=== PATIENT | female | born 1985 | race American Indian/Alaskan Native ===

== ENCOUNTER 2023-04-27 09:04 | Inpatient (IN) | payer OTHER ==
[2023-04-27] MEDS ORDERED: miSOPROStoL 200 MCG TABLET BC PRN (09:23)
[2023-04-27] MEDS ORDERED: OXYTOCIN 10 UNIT/ML VIAL IM PRN (09:23)
[2023-04-27] MEDS ORDERED: METHYLERGONOVINE 0.2 MG/ML VIAL IM PRN (09:23)
[2023-04-27] MEDS ORDERED: miSOPROStoL 200 MCG TABLET PR PRN (09:23)
[2023-04-27] MEDS ORDERED: fentaNYL 100 MCG/2 ML VIAL IVP PRN (09:23)
[2023-04-27] MEDS ORDERED: LACTATED RINGERS 1,000 ML IV PRN (09:23)
[2023-04-27] MEDS ORDERED: lidocaine 1% 20 ML MDV ID PRN (09:23)
[2023-04-27] MEDS ORDERED: TRANEXAMIC ACID IN NACL 1,000 MG/100 ML BAG IV PRN (09:23)
[2023-04-27] MEDS ORDERED: CARBOPROST TROMETHAMINE 250 MCG/ML AMP IM PRN (09:23)
[2023-04-27] MEDS ORDERED: OXYTOCIN/SODIUM CHLORIDE 500 ML IV PRN (09:23)
[2023-04-27] MEDS ORDERED: SODIUM CHLORIDE FLUSH 0.9% 10 ML SYRINGE IVP PRN (09:23)
--- NOTE | 2023-04-27 09:32 | HISTORY & PHYSICAL EXAMINATION ---
Admit History - Visit Reason Visit Reason: Contractions - : 6 Parity: 4 Care: positive: Other ([facility]) Complications This : positive: Other (AMA Hx DVT second , treated with Lovenox all since then Ulcerative colitis Gallbladder stones Elevated GTT 162) - Mother's Labs GBS: positive: Group B Step Negative (per patient) - Other Maternal History Other Maternal History: Med: Ulcerative colitis DVT in second Surg: colonoscopy Fam: stroke, htn, DM, heart disease Social: , denies mary - HPI Diagnosis/Indication for NST: labor (rule out labor 38w) - NST Procedure EFM: 140s, moderate variability, positive 15x15 accelerations, no decelerations [place]: contractions q4 NST reactive Admitted for labor Review of Systems - All Other Systems All Other Systems: reports: Reviewed and negative Physical - Abdominal Exam Contraction Frequency (min/apart): 4 Contraction Intensity: positive: Moderate Uterine Resting Tone: positive: Soft - Monitoring Heart Rate Baseline: 140 Strip Review: positive: Category I - Presentation Presentation: positive: Vertex (placenta anterior, EFW 3800g) - Vaginal Exam Membranes: positive: Membranes intact Dilation (in cm): 5 Effacement (%): 50 Station: positive: -3 Cervical Position: positive: Midposition Plan for Labor - Plan For Labor I expect patient to be DC'd or transferred within 96 hours.: Yes Plan for Labor: 37yo at 38w by LMP confirmed by 8w US admitted in labor - T&S, CBC - records from reviewed - May have epidural - Anticipate
[2023-04-27] MEDS ORDERED: ROPIVACAINE 0.2% 200 MG/100 ML BAG EP ONE ×2 (09:51→16:28)
[2023-04-27] MEDS ORDERED: SODIUM CHLORIDE FLUSH 0.9% 10 ML SYRINGE IVP SCH (10:00)
[2023-04-27] MEDS ORDERED: ROPIVACAINE 0.2% 200 MG/100 ML BAG EP PRN (10:27)
[2023-04-27] MEDS ORDERED: ePHEDrine 50 MG/ML VIAL IVP PRN (10:27)
[2023-04-27] MEDS ORDERED: NALOXONE 0.4 MG/ML VIAL IVP PRN (10:27)
[2023-04-27] MEDS ORDERED: METOCLOPRAMIDE 10 MG/2 ML VIAL IVP PRN (10:27)
[2023-04-27] MEDS ORDERED: NALBUPHINE 10 MG/ML AMP IVP PRN (10:27)
[2023-04-27] MEDS ORDERED: ONDANSETRON 4 MG/2 ML VIAL IVP PRN (10:27)
[2023-04-27] MEDS ORDERED: diphenhydrAMINE INJ 50 MG/ML VIAL IVP PRN (10:27)
--- NOTE | 2023-04-27 10:31 | ANESTHESIA ---
Pre-Anesthesia VS, & Labs - Diagnosis active labor - Procedure labor epidural Vital Signs: Temp Pulse Resp BP Pulse Ox O2 Flow Rate 36.6 C 96 17 111/66 100 04/27/23 09:40 04/27/23 09:40 04/27/23 09:40 04/27/23 09:40 04/27/23 09:40 Height: 5 ft 3 in Weight (kg): 72.121 kg Body Mass Index: 28.1 BMI Classification: Overweight - NPO >8 hours - Is Patient ?: No Home Medications and Allergies Active Medications Carboprost Tromethamine (Carboprost Tromethamine 250 Mcg/Ml Amp) 250 mcg IM .ONCE PRN PRN Reason: Hemorrhage Diphenhydramine HCl (Diphenhydramine Inj 50 Mg/Ml Vial) 12.5 - 25 mg IVP Q6HR PRN PRN Reason: ITCHING Ephedrine Sulfate (Ephedrine 50 Mg/Ml Vial) 5 mg IVP Q5M PRN PRN Reason: For SBP<100;give until SBP>100 Fentanyl (Fentanyl 100 Mcg/2 Ml Vial) 50 mcg IVP Q1H PRN PRN Reason: Severe Pain (score 7-10) Lactated Ringer's (Lr) 500 mls @ 999 mls/hr IV PRN PRN PRN Reason: PER PHYSICIAN ORDER Oxytocin/Sodium Chloride (Pitocin/Sodium Chloride) 500 mls @ 999 mls/hr IV PRN PRN; Protocol PRN Reason: POST- HEMORR PREVENTION Tranexamic Acid (Tranexamic 1,000 Mg/100ml-Nacl) 1,000 mg in 100 mls @ 600 mls/hr IV Q30M PRN PRN Reason: EBL >1200mL and within 3hr Ropivacaine (Naropin 0.2%) 200 mg in 100 mls @ 0 mls/hr EP PRN PRN; Protocol PRN Reason: PAIN Lidocaine HCl (Lidocaine 1% 20 Ml Mdv) 20 ml ID .ONCE PRN PRN Reason: PERINEAL REPAIR Stop: 04/30/23 09:23 Methylergonovine Maleate (Methylergonovine 0.2 Mg/Ml Vial) 0.2 mg IM .ONCE PRN PRN Reason: Hemorrhage Metoclopramide HCl (Metoclopramide 10 Mg/2 Ml Vial) 10 mg IVP Q6HR PRN PRN Reason: Nausea / Vomiting Misoprostol (Misoprostol 200 Mcg Tablet) 600 mcg BC .ONCE PRN PRN Reason: Hemorrhage Misoprostol (Misoprostol 200 Mcg Tablet) 800 mcg VT .ONCE PRN PRN Reason: Hemorrhage Nalbuphine HCl (Nalbuphine 10 Mg/Ml Amp) 2.5 - 5 mg IVP Q4H PRN PRN Reason: ITCHING Naloxone HCl (Naloxone 0.4 Mg/Ml Vial) 0.1 mg IVP Q2M PRN PRN Reason: RR<8 Ondansetron HCl (Ondansetron 4 Mg/2 Ml Vial) 4 mg IVP Q6HR PRN PRN Reason: Nausea / Vomiting Oxytocin (Oxytocin 10 Unit/Ml Vial) 10 unit IM .ONCE PRN PRN Reason: Step One if no IV access. Sodium Chloride (Sodium Chloride Flush 0.9% 10 Ml Syringe) 10 ml IVP PRN PRN PRN Reason: NEEDED PER PROVIDER ORDERS Sodium Chloride (Sodium Chloride Flush 0.9% 10 Ml Syringe) 10 ml IVP Q8H LIN Anes History & Medical History - Anesthetic History Anesthesia Complications: reports: Slow wake-up (from propofol after endoscopy) - Medical History Cardiovascular: reports: None Pulmonary: reports: None Blood Disorders: reports: None (histpru of DTV post , last lovenox friday per patient) Smoking Status: Never smoker Psychosocial: reports: No issues indicated History of Cancer?: No - Obstetrical History : 6 Parity: 4 Complications: reports: Other (AMA Hx DVT second , treated with Lovenox all since then Ulcerative colitis Gallbladder stones Elevated GTT 162) Exam General: Alert, Oriented x3 Dental: WNL Mouth Opening: Greater than 4 Fingerbreadths Neck Mobility: Normal Mallampati classification: II Thyromental Distance: less than 4 cm Respiratory: Lungs clear Cardiovascular: Regular rate Plan Anesthesia Type: Epidural Consent for Procedure(s) Verified and Reviewed: Yes Code Status: Attempt Resuscitation ASA classification: 2-Mild systemic disease Is this case an emergency?: No
[2023-04-27 10:43] LABS: BASOPHILS # (AUTO) 0.1 10^3/uL (0.0-0.1); BASOPHILS % (AUTO) 0.4 %; EOSINOPHILS # (AUTO) 0.2 10^3/uL (0.0-0.7); EOSINOPHILS % (AUTO) 1.3 %; HCT - HEMATOCRIT 34.4 % (37.0-47.0); HGB - HEMOGLOBIN 11.2 g/dL (12.0-16.0); LYMPHOCYTES # (AUTO) 2.5 10^3/uL (1.5-3.5); LYMPHOCYTES % (AUTO) 21.3 %; MEAN CORPUSCULAR HEMOGLOBIN 29.3 pg (27.0-31.0); MEAN CORPUSCULAR HGB CONC 32.6 g/dL (32.0-36.0); MEAN CORPUSCULAR VOLUME 90.1 fL (81.0-99.0); MEAN PLATELET VOLUME 9.9 fL (7.9-10.8); MONOCYTES # (AUTO) 0.8 10^3/uL (0.0-1.0); MONOCYTES % (AUTO) 7.2 %; NEUTROPHILS # (AUTO) 7.9 10^3/uL (1.5-6.6); NEUTROPHILS % (AUTO) 68.6 %; PLT - PLATELET COUNT 186 10^3/uL (130-450); RED BLOOD COUNT 3.82 10^6/uL (4.20-5.40); RED CELL DISTRIBUTION WIDTH 13.9 % (12.0-15.0); WHITE BLOOD COUNT 11.6 x10^3/uL (4.8-10.8)
[2023-04-27] MEDS ORDERED: OXYTOCIN/SODIUM CHLORIDE 500 ML IV SCH (12:00)
[2023-04-27] MEDS ORDERED: LORazepam 2 MG/ML VIAL IVP PRN (13:02)
[2023-04-27] MEDS ORDERED: LORazepam 2 MG/ML VIAL IVP SCH (13:15)
--- NOTE | 2023-04-27 15:52 | PROVIDER PROGRESS NOTE ---
Labor Progress Note - Uterine Monitoring Uterine Monitoring Mode: positive: External toco Contraction Frequency (min/apart): 4 Contraction Intensity: positive: Mild to moderate - Monitoring Monitor Mode: positive: External ultrasound Heart Rate Baseline: 130 Heart Rate Variability: positive: Moderate (6-25 bmp) Accelerations: positive: Present, 15x15 Decelerations: positive: None Strip Review: positive: Category I - Vaginal Exam Dilation (in cm): 6 Effacement (%): 100 Station: -2 Cervical Position: Midposition (AROM clear 1230) - Labor Progress Note Labor Progress Note/Additional Text: 37yo at 38w admitted in labor - After epidural patient began to have involuntary vs voluntary dyskinetic move ments. Bed rail padding applied to stretcher due to arm, body and head rapid movements. Patient coherent and answering questions during movements. Encouraged slower deeper breathing. Sustained rapid movements. Denies drug use history or siezure or other neurology history. reports similar episodes nightly that improve with sleep. Discussed lorazepam as patient at risk for injuring herself and abdomen, she accepts. Anesthesia to bedside to assess epidural. Soon after lorazepam patient able to rest and sleep. Continue to monitor. Consider psychiatric and/or neurology referral . - AROM 1230, clear. Pitocin also started to expedite delivery due to patient movements and discomfort.
[2023-04-27] MEDS ORDERED: WITCH HAZEL/GLYCERIN 1 PAD TOP PRN (20:10)
[2023-04-27] MEDS ORDERED: HYDROCORTISONE 1% CREAM 28 GM TUBE PR PRN (20:10)
--- NOTE | 2023-04-27 20:16 | DELIVERY NOTE ---
Delivery Note - Labor Labor: positive: Spontaneous, Augmented by ARM, Augmented by oxytocin - Delivery Method Infant Delivery Method: positive: Spontaneous vaginal delivery - Presentation Presentation: positive: Vertex, JENI - left occiput anterior - Nuchal Cord Nuchal Cord: positive: None - Amniotic Fluid Description Amniotic Fluid Description: positive: Clear - Episiotomy Type Episiotomy Type: positive: None - Laceration Laceration: positive: None - Delivery Outcome Delivery Outcome: positive: Livebirth - : positive: Placed in direct skin contact with mother, Stimulated, Warmed, [place] used sex: positive: Female - Cord Cord: positive: 3 vessels - Placenta Placenta: positive: Intact, Spontaneous - Estimated Blood Loss Estimated Blood Loss (in cc): 150 - Post Delivery Events Post Delivery Events: positive: No post delivery events - Delivery Comments (Free Text/Narrative) Delivery Comments (Free Text/Narrative): This 37yo at 38.2wks gestation is a patient of the auction assistant physician. I was called to the patient's room at 1940 secondary to patient feeling significant vaginal and rectal pressure with urge to push. She was found to be completely dilated and effaced and +1 station. : She progressed to spontaneously deliver a viable female on 04/27/2023 @ 1943. No nuchal cord. The was placed on maternal abdomen, stimulated, dried, and placed skin to skin. Apgars were 9/9 at 1 and 5 minutes respectively. Pitocin administered via IV for hemostasis. The umbilical cord was allowed to stop pulsating at which time it was doubly clamped by CNM and cut by FOB. 3VC. Cord blood was obtained. Fundal massage and gentle cord traction applied for active management of the third stage. Placenta delivered spontane ously and intact at 1946. EBL 150mL. Fourth stage: Uterine fundus firm and there is no excessive bleeding. The perineum, vagina, and cervix were inspected and found to be intact. Family bonding well. Skin to skin contact initiated. Both mother and baby were left in stable condition. Care handed back to auction assistant physician.
[2023-04-27] MEDS ORDERED: LACTATED RINGERS 1,000 ML IV SCH (21:00)
[2023-04-27] MEDS ORDERED: IBUPROFEN 800 MG TABLET PO SCH (21:00)
[2023-04-27] MEDS: ACETAMINOPHEN 500 MG TABLET PO SCH (21:20)
[2023-04-27] MEDS: DOCUSATE SODIUM 100 MG CAPSULE PO SCH (21:58)
[2023-04-27] MEDS: HYDROcod/ACETAM 5/325 MG TABLET PO PRN (21:58)
[2023-04-28] MEDS: HYDROcod/ACETAM 5/325 MG TABLET PO PRN ×5 (02:33→21:08)
[2023-04-28 05:24] LABS: BASOPHILS # (AUTO) 0.1 10^3/uL (0.0-0.1); BASOPHILS % (AUTO) 0.3 %; EOSINOPHILS # (AUTO) 0.2 10^3/uL (0.0-0.7); HCT - HEMATOCRIT 34.3 % (37.0-47.0); HGB - HEMOGLOBIN 11.3 g/dL (12.0-16.0); LYMPHOCYTES # (AUTO) 4.2 10^3/uL (1.5-3.5); LYMPHOCYTES % (AUTO) 21.4 %; MEAN CORPUSCULAR HEMOGLOBIN 29.7 pg (27.0-31.0); MEAN CORPUSCULAR HGB CONC 32.9 g/dL (32.0-36.0); MEAN PLATELET VOLUME 9.8 fL (7.9-10.8); MONOCYTES # (AUTO) 1.9 10^3/uL (0.0-1.0); MONOCYTES % (AUTO) 9.7 %; NEUTROPHILS # (AUTO) 13.1 10^3/uL (1.5-6.6); NEUTROPHILS % (AUTO) 66.7 %; PLT - PLATELET COUNT 189 10^3/uL (130-450); RED BLOOD COUNT 3.81 10^6/uL (4.20-5.40); RED CELL DISTRIBUTION WIDTH 14.2 % (12.0-15.0); WHITE BLOOD COUNT 19.7 x10^3/uL (4.8-10.8)
[2023-04-28] MEDS: ACETAMINOPHEN 500 MG TABLET PO SCH (05:48)
[2023-04-28] MEDS: ENOXAPARIN 40 MG/0.4 ML SYRINGE SUBQ SCH (05:49)
[2023-04-28] MEDS: DOCUSATE SODIUM 100 MG CAPSULE PO SCH ×2 (09:22→21:08)
--- NOTE | 2023-04-28 17:18 | PROVIDER PROGRESS NOTE ---
Subjective - Subjective Subjective: Subjective Patient reports she is doing well. Lochia appropriate. Denies heavy bleeding. Ambulating. Pelvic and abdominal pain well-controlled. Tolerating oral intake. Diet: Regular. Voiding without difficulty. Passing flatus. Denies BM. Patient is bonding with baby in room Breast feeding slow, but making a lot of colostrum. Seems to be getting slightly better. Denies feeling lightheaded, dizzy or excessively fatigued. Objective General: Alert, oriented, no apparent distress. Cardiovascular: Regular rate. Regular rhythm. Lungs: No increased work of breathing. Abdomen: Uterus firm. Below umbilicus. No guarding or rebound. Extremities: No pain on palpation. No cords palpated. Distal pulses intact. Assessment and Plan day 1. -Routine care -Anticipate discharge tomorrow Objective - Vital Signs/Intake & Output Vital Signs: Vital Signs x48h Temp Pulse Resp BP BP Pulse Ox 04/28/23 13:16 97.9 F 78 16 103/62 100 04/28/23 10:00 97.5 F L 78 16 109/66 100 Intake & Output: Intake & Output 04/25/23 04/26/23 04/27/23 04/28/23 23:59 23:59 23:59 23:59 Intake Total 2387 750 Output Total 1425 1150 Balance 962 -400 - Lab Results Fish Bones: 04/28/23 05:13 Other Labs: Lab Results x24hrs 04/28/23 Range/Units 05:13 WBC 19.7 H (4.8-10.8) x10^3/uL RBC 3.81 L (4.20-5.40) 10^6/uL Hgb 11.3 L (12.0-16.0) g/dL Hct 34.3 L (37.0-47.0) % MCV 90.0 (81.0-99.0) fL MCH 29.7 (27.0-31.0) pg MCHC 32.9 (32.0-36.0) g/dL RDW 14.2 (12.0-15.0) % Plt Count 189 (130-450) 10^3/uL MPV 9.8 (7.9-10.8) fL Neut # (Auto) 13.1 H (1.5-6.6) 10^3/uL Lymph # (Auto) 4.2 H (1.5-3.5) 10^3/uL [place] # (Auto) 1.9 H (0.0-1.0) 10^3/uL Eos # (Auto) 0.2 (0.0-0.7) 10^3/uL Baso # (Auto) 0.1 (0.0-0.1) 10^3/uL Absolute Nucleated RBC 0.00 x10^3/uL Nucleated RBC % 0.0 /100WBC
[2023-04-29] MEDS: HYDROcod/ACETAM 5/325 MG TABLET PO PRN ×2 (01:41→06:09)
[2023-04-29] MEDS: ENOXAPARIN 40 MG/0.4 ML SYRINGE SUBQ SCH (06:10)
[2023-04-29 06:24] LABS: BASOPHILS # (AUTO) 0.1 10^3/uL (0.0-0.1); BASOPHILS % (AUTO) 0.4 %; EOSINOPHILS # (AUTO) 0.4 10^3/uL (0.0-0.7); HCT - HEMATOCRIT 35.3 % (37.0-47.0); HGB - HEMOGLOBIN 11.3 g/dL (12.0-16.0); LYMPHOCYTES # (AUTO) 3.8 10^3/uL (1.5-3.5); LYMPHOCYTES % (AUTO) 29.6 %; MEAN CORPUSCULAR HEMOGLOBIN 29.5 pg (27.0-31.0); MEAN CORPUSCULAR VOLUME 92.2 fL (81.0-99.0); MEAN PLATELET VOLUME 9.9 fL (7.9-10.8); NEUTROPHILS # (AUTO) 7.5 10^3/uL (1.5-6.6); NEUTROPHILS % (AUTO) 58.3 %; PLT - PLATELET COUNT 198 10^3/uL (130-450); RED BLOOD COUNT 3.83 10^6/uL (4.20-5.40); RED CELL DISTRIBUTION WIDTH 14.2 % (12.0-15.0); WHITE BLOOD COUNT 12.8 x10^3/uL (4.8-10.8)
--- NOTE | 2023-04-29 07:35 | DISCHARGE SUMMARY ---
Discharge Summary Admit Date: 04/27/23 Discharge Date: 04/29/23 Discharging Provider: Howie Whittaker MD Condition at Discharge: Good Discharge Disposition: 01 Home, Self Care - DIAGNOSES Admission Diagnoses: 38 weeks gestation Early term labor Discharge Diagnoses with Status of Each Condition: 38 weeks gestation Early term labor Delivery of live green - HPI History of Present Illness: Subjective Patient reports she is doing well. Lochia appropriate. Denies heavy bleeding. Ambulating. Pelvic and abdominal pain well-controlled. Tolerating oral intake. Diet: Regular. Voiding without difficulty. Passing flatus. Denies BM. Patient is bonding with baby in room Breast feeding going well. Denies feeling lightheaded, dizzy or excessively fatigued. Objective General: Alert, oriented, no apparent distress. Cardiovascular: Regular rate. Regular rhythm. Lungs: No increased work of breathing. Abdomen: Uterus firm. Below umbilicus. No guarding or rebound. Extremities: No pain on palpation. No cords palpated. - HOSPITAL COURSE Hospital Course: Patient was admitted to labor and delivery at 38 weeks in spontaneous labor. She had AROM performed in active labor and progressed to complete without complication. She had an uneventful delivery of a live green female with APGARs of 9/9. course was unremarkable and she was discharged on day 2. - ALLERGIES Allergies/Adverse Reactions: Allergies Allergy/AdvReac Type Severity Reaction Status Date / Time amoxicillin Allergy Edema Verified 04/27/23 10:49 cephalexin [From Keflex] Allergy Edema Verified 04/27/23 10:49 propofol Allergy Unknown Verified 04/27/23 10:49 - LABS Result Diagrams: 04/29/23 06:18 - FOLLOW UP Follow Up: [facility] in 1-2 weeks - TIME SPENT Time Spent in Discharge (Minutes): 20
--- NOTE | 2023-04-29 07:37 | Discharge Plan ---
Discharge Plan Problem Reviewed?: Yes Disposition: Home, Self Care Condition: Good Diet: Regular Instruction Topics: Vaginal After, Depression Additional Instructions or Follow Up instructions: Ibuprofen 600mg by mouth every 6 hours and tylenol 1000mg by mouth every 6 hours as needed for pain. May keep for a couple days as scheduled to stay on top of pain. No Smoking: If you smoke, Please STOP! Call for help.
[2023-04-29] MEDS: DOCUSATE SODIUM 100 MG CAPSULE PO SCH (10:06)
[2023-04-29 10:16] VITALS: BP 106/61; O2SAT 100
--- NOTE | 2023-04-29 13:48 | Labor Flowsheet ---
Labor Flowsheet Datetime Report Generated by CPN: 04/29/2023 13:47 Datetime: 04/28/2023 17:11 VITAL SIGNS NBP Sys/[place]/Mean (mmHg): 111 : 59 : 72 Pulse: 78 Datetime: 04/27/2023 22:40 Stage of : Datetime: 04/27/2023 21:45 Pain Type: Cramping; Pressure Pain Location: Abdomen Pain Goal: 4 Pain Relief Measures: Comfort Measures Datetime: 04/27/2023 21:31 Respirations: 22 Datetime: 04/27/2023 21:01 PAIN Pain Scale: 5 Pain Presence: Constant Datetime: 04/27/2023 20:17 Temperature Route: Oral Datetime: 04/27/2023 19:47 Stage 2 Comments: 1947Placenta, pitocin bolus Datetime: 04/27/2023 19:44 Membranes Ruptured Date/Time: 04/27/2023 12:28 Amniotic Fluid Odor: Normal Datetime: 04/27/2023 19:43 Comments: female Pushing Position: Pushing with Contractions Pushing Progress: Descent with Pushing; Pushing Effectively with Contractions Datetime: 04/27/2023 19:42 STAGE 2 Pushing: Coached on Pushing; Urge to Push; Involuntary Pushing Preparation for Delivery: Setup for Delivery Datetime: 04/27/2023 19:40 Patient Position/Activity: Left Tilt I/O Interventions: [place] Discontinued Patient Care Comments: [place] removed; 500ml urine; cephalus starting to crown COMMUNICATION Communication: Provider at Bedside Communication Comments: CNM Chrissie at bedside; pt complete at +1 to +2 Datetime: 04/27/2023 19:38 VAGINAL EXAM Dilatation (cm): 9.5 Effacement (%): 100 Station: 1 Exam by: Spear RNC Datetime: 04/27/2023 19:35 LaborFlag: Labor Datetime: 04/27/2023 19:30 Monitor Interventions for UA: 1.5-3.5 Pain Coping: Writhing Pain Assessment Comments: Reporting pressure at symphysis Vaginal Bleeding: Normal Show Cervix, Consistency: Soft Cervix, Position: Anterior Vaginal Exam Comments: repositioned to LLP after SVE Comfort Measures: Breathing/Relaxation; Coaching; Family Support Provider Reviewed Strip: Yes ANESTHESIA Anesthesia Plans: Epidural Anesthesia Level Check: T8- Ribs TEACHING Instructional Method: Verbal; Patient Instructed; Family/Support Person Instructed; Verbalized Unde rstanding Plan of Care: Plan of Care Discussed; Vaginal Delivery Unit Routine: Unit Personnel Provider Notified (Name): CNM Chrissie Notification Reason: Status Update; Labor Status Datetime: 04/27/2023 19:29 Temperature (C): 36.5 UTERINE ACTIVITY Monitor Mode: External Frequency (min): 1.5-3.5 Quality: Strong Duration (sec): 40-110 Pattern: Normal: <= 5 Contractions in 10 Minutes Resting Tone (Palpate): Relaxed Contraction Comments: Pitociin remains off ASSESSMENT A Monitor Mode: Telemetry FHR Baseline Rate : 140 FHR Baseline Changes: No Baseline Change Variability: Moderate 6-25 bpm Accelerations: 15X15 Decelerations: None Category: Category I MATERNAL ASSESSMENT Level of Consciousness: Alert Headache: Denies Nausea/Vomiting: Hx of Nausea/Vomiting RUQ Epigastric Pain: Denies PATIENT CARE Oxygen Method: Room Air Datetime: 04/27/2023 18:01 Pitocin Checklist: At Least 1 Acceleration of 15 bpm x 15 Seconds in 30 Minutes or Adequate Variabi lity; No More than 1 Late Deceleration Occurred in Past 30 Minutes; No More than 2 Variable Decelerat ions > 60 Seconds in Duration and decreasing >60 bpm in 30 minutes; No More than 5 Uterine Contractio ns in 10 Minutes for any 20 Minute Interval; Uterus Palpates Soft between Contractions Datetime: 04/27/2023 17:15 MEDICATIONS Pitocin (milliunits): Increased to @ 14 Datetime: 04/27/2023 16:25 Anesthesia Comments: DEO bag changed d/t low volume of current bag Datetime: 04/27/2023 16:00 SpO2 (%): 99 Datetime: 04/27/2023 13:46 Medication Comments: O2 off Datetime: 04/27/2023 13:39 Vital Sign Comments: Difficulty reading PT BP d/t to Pt movement and inability to sit still Datetime: 04/27/2023 12:28 Membrane Status: Ruptured Membranes Rupture Method: Artificial Amniotic Fluid Color: Clear Amniotic Fluid Amount: Scant Membrane Comments: blood tinged Datetime: 04/27/2023 09:59 Epidural Procedure: Test Dose Datetime: 04/27/2023 09:55 PROCEDURE TIME OUT Procedure Verify: Correct Patient Identity; Correct Side and Site are Marked; Agreement on Procedur e to be Done; Correct Patient Position; Addressed Need to Administer Antibiotics or Fluids for Irriga tion; Safety Precautions Based on Patient History or Medication Use Epidural Positioning: Sitting
== END 2023-04-29 13:47 | disposition home or self-care (01) | DRG 807 ==
LOC: WFO 09:04 → FBP 09:06 → WFO 09:22 → FBP 09:23
PROVIDERS: ADMIT Obstetrics & Gynecology; ATTEND Obstetrics & Gynecology
PROC: 10E0XZZ Delivery of Products of Conception, External Approach (ICD-10-PCS; principal; 2023-04-27)
PROC: 10907ZC Drainage of Amniotic Fluid, Therapeutic from Products of Conception, Via Natural or Artificial Opening (ICD-10-PCS; 2023-04-27)
DX: O80 Encounter for full-term uncomplicated delivery (principal); Z37.0 Single live birth; Z3A.38 38 weeks gestation of pregnancy; Z86.718 Personal history of other venous thrombosis and embolism
CPT/HCPCS: 36415; 85025; 86850; 86900; 86901; A9270; J1650; J7120; 99214

== ENCOUNTER 2023-07-23 15:08 | Emergency (ER) | payer OTHER ==
[2023-07-23 15:27] VITALS: BP 111/65; O2SAT 98
[2023-07-23 15:38] LABS: RAPID STREP SCREEN Negative (Negative)
--- NOTE | 2023-07-23 15:43 | ED Physician Documentation ---
PD HPI PED ILLNESS - Stated complaint Stated Complaint: THROAT/CHEST PX,LEONARD, - Chief complaint Chief Complaint: Heent - History obtained from History obtained from: Patient - Additional information Additional information: 37-year-old woman with history of ulcerative colitis on mesalamine and Remicade presents with 5 days of sore throat not associated with runny nose or cough. She had a low-grade fever at home. She is worried about strep. PD PAST MEDICAL HISTORY - Past Medical History Past Medical History: Yes Cardiovascular: None Respiratory: None GI: Ulcerative colitis - Past Surgical History Past Surgical History: No - Present Medications Home Medications: Ambulatory Orders Medication Instructions Recorded Confirmed inFLIXimab [Remicade] 200 mg IV ONCE 07/23/23 07/23/23 - Allergies Allergies/Adverse Reactions: Allergies Allergy/AdvReac Type Severity Reaction Status Date / Time amoxicillin Allergy Edema Verified 04/27/23 10:49 cephalexin [From Keflex] Allergy Edema Verified 04/27/23 10:49 propofol Allergy Unknown Verified 04/27/23 10:49 - Social History Does the pt smoke?: No Smoking Status: Never smoker PD ED PE NORMAL - Vitals Vital signs reviewed: Yes - General General: Alert and oriented X 3, No acute distress - HEENT HEENT: PERRL, EOMI, Other (Mildly red tonsillar pillars without exudates, she does have significant anterior cervical adenopathy.) - Neck Neck: Supple, no meningeal sign - Cardiac Cardiac: RRR, No murmur - Respiratory Respiratory: No respiratory distress, Clear bilaterally - Abdomen Abdomen: Non tender - Derm Derm: No rash - Neuro Neuro: Alert and oriented X 3, Normal speech Results - Vitals Vitals: Vital Signs - 24 hr 07/23/23 15:11 Temperature 36.5 C Heart Rate 91 Respiratory 16 Rate Blood Pressure 111/65 O2 Saturation 98 - EKG (time done) 1532 EKG releavant findings:: EKG personally interpreted by author of this note. Relevant findings are: Rate: Rate (enter#) (85) Rhythm: NSR [place]: Normal Intervals: Normal [place] QRS: Normal Ischemia: Normal ST segments Computer interpretation: Agree with computer - Labs Labs: Laboratory Tests 07/23/23 15:22 Group A Strep Rapid Negative PD Medical Decision Making - ED course ED course: She presents for the evaluation of sore throat. She has some reactive chest pain with this. EKG is unremarkable. Examination on the right is normal/negative other than mildly red tonsillar pillars. Rapid strep was negative. Departure - Departure Disposition: 01 Home, Self Care Clinical Impression: Viral pharyngitis Condition: Good Record reviewed to determine appropriate education?: Yes Instructions: ED Pharyngitis Viral Report Pending Comments: Your rapid strep test was negative. You can take Tylenol and/or ibuprofen as needed for the pains. Return if worse. We will perform a throat culture and if a bacterial isolate is identified we will call you in the next few days.
== END 2023-07-23 15:58 | disposition home or self-care (01) ==
LOC: ED 15:08
DX: J02.8 Acute pharyngitis due to other specified organisms (principal)
CPT/HCPCS: 87070; 87430; 93005; 99283

== ENCOUNTER 2023-09-22 07:54 | Day surgery (SDC) | payer OTHER ==
[~2023-09-22 07:54] MED LIST: ACETAMINOPHEN 500 MG TABLET PO ONE; LACTATED RINGERS 1,000 ML IV ONE; ceFAZolin 2 GM VIAL ONE; metroNIDAZOLE 500 MG/100 ML 500 MG/100 ML BAG ONE
[2023-09-22 08:18] LABS: HCG UR QUAL NEGATIVE
[2023-09-22] MEDS ORDERED: ROCURONIUM 50 MG/5 ML VIAL ONE ×2 (08:38→09:46)
[2023-09-22] MEDS ORDERED: DEXAMETHASONE 4 MG/ML VIAL ONE (08:38)
[2023-09-22] MEDS ORDERED: diphenhydrAMINE INJ 50 MG/ML VIAL ONE (08:38)
[2023-09-22] MEDS ORDERED: ONDANSETRON 4 MG/2 ML VIAL ONE ×2 (08:38→11:19)
[2023-09-22] MEDS ORDERED: MIDAZOLAM 2 MG/2 ML VIAL ONE (08:38)
[2023-09-22] MEDS ORDERED: PROPOFOL 200 MG/20 ML VIAL IVP ONE (08:38)
[2023-09-22] MEDS ORDERED: fentaNYL 100 MCG/2 ML VIAL ONE ×3 (08:39→11:26)
[2023-09-22] MEDS ORDERED: BUPIVACAINE 0.5% PF 10 ML VIAL ONE (08:46)
[2023-09-22] MEDS ORDERED: LIDOCAINE 1%-EPI 1:100000 20 ML MDV ONE (08:46)
[2023-09-22] MEDS ORDERED: iohexoL-240 10 ML VIAL IVP ONE ×3 (08:48→09:58)
[2023-09-22] MEDS ORDERED: LIDOCAINE 1%-EPI 1:100000 20 ML MDV SUBQ ONE (09:28)
[2023-09-22] MEDS ORDERED: BUPIVACAINE 0.5% PF 10 ML VIAL SUBQ ONE (09:29)
--- NOTE | 2023-09-22 09:35 | ANESTHESIA ---
Pre-Anesthesia VS, & Labs - Diagnosis cholelithiasis, cholecystitis - Procedure lap ritesh with IOC Vital Signs: Temp Pulse Resp BP Pulse Ox O2 Flow Rate 36.4 C L 86 16 103/60 96 09/22/23 08:12 09/22/23 08:12 09/22/23 08:12 09/22/23 08:21 09/22/23 08:12 Height: 5 ft 3 in Weight (kg): 71.4 kg Body Mass Index: 27.8 BMI Classification: Overweight - NPO >8 hours - Is Patient ?: No Comments:: , 5 mo PP - Lab Results Lab results reviewed: Yes Home Medications and Allergies Home Medications: Ambulatory Orders Pnv No.95/Ferrous Fum/Folic AC [ Caplet] 1 each PO DAILY 09/15/23 Pnv No.95/Ferrous Fum/Folic AC [ Caplet] 1 each PO DAILY 09/15/23 Allergies/Adverse Reactions: Allergies Allergy/AdvReac Type Severity Reaction Status Date / Time amoxicillin Allergy Edema Verified 09/22/23 07:48 cephalexin [From Keflex] Allergy Edema Verified 09/22/23 07:48 propofol Allergy whole body Verified 09/22/23 07:48 turned red, convulsions, couldn't talk Anes History & Medical History - Anesthetic History Anesthesia Complications: reports: Other-see comment (pt had dystonic reaction to propofol with previous colonoscopy, unable to review records ([place]). pt has never had GETA. Discussed plan with pt and will pre-medicate pt prior to any propofol use. pt agreeable) Family history of Anesthesia Complications: Denies Family history of Malignant Hyperthermia: Denies - Medical History Cardiovascular: reports: None Pulmonary: reports: None Gastrointestinal: reports: GERD, Cholelithiasis, Ulcerative colitis Urinary: reports: None Musculoskeletal: reports: Chronic back pain Endocrine/Autoimmune: reports: None Blood Disorders: reports: None Skin: reports: None Smoking Status: Never smoker - Surgical History General: reports: Colonoscopy Exam General: Alert, Oriented x3, Cooperative Dental: WNL, Other (prominent incisors) Mouth Openin Fingerbreadth Neck Mobility: Normal Mallampati classification: I Thyromental Distance: 4-6 cm Respiratory: Lungs clear Cardiovascular: Regular rate Plan Anesthesia Type: General Consent for Procedure(s) Verified and Reviewed: Yes Code Status: Attempt Resuscitation ASA classification: 2-Mild systemic disease Is this case an emergency?: No
[2023-09-22] MEDS ORDERED: ONDANSETRON 4 MG/2 ML VIAL IVP PRN ×2 (09:37→10:43)
[2023-09-22] MEDS ORDERED: ATROPINE ABBOJECT 1 MG/10 ML SYRINGE IVP PRN (09:37)
[2023-09-22] MEDS ORDERED: ePHEDrine 50 MG/ML VIAL IVP PRN (09:37)
[2023-09-22] MEDS ORDERED: MORPHINE 2 MG/ML CARPUJECT IVP PRN (09:37)
[2023-09-22] MEDS ORDERED: METOCLOPRAMIDE 10 MG/2 ML VIAL IVP PRN (09:37)
[2023-09-22] MEDS ORDERED: NALOXONE 0.4 MG/ML VIAL IVP PRN (09:37)
[2023-09-22] MEDS ORDERED: LACTATED RINGERS 1,000 ML IV SCH (10:00)
[2023-09-22] MEDS ORDERED: SUGAMMADEX 200 MG/2 ML VIAL IVP ONE (10:19)
[2023-09-22] MEDS ORDERED: LACTATED RINGERS 1,000 ML IV ONE ×3 (10:41→13:30)
[2023-09-22] MEDS ORDERED: oxyCODONE 5 MG TABLET PO PRN (10:43)
[2023-09-22] MEDS ORDERED: IBUPROFEN 600 MG TABLET PO PRN (10:43)
[2023-09-22] MEDS ORDERED: ACETAMINOPHEN 325 MG TABLET PO PRN (10:43)
--- NOTE | 2023-09-22 10:50 | OPERATIVE REPORT ---
Operative Report - General Procedure Date: 09/22/23 Planned Procedure: Laparoscopic cholecystectomy with cholangiogram, possible open Pre-Op Diagnosis: Chronic cholecystitis, symptomatic cholelithiasis Procedure Performed: Laparoscopic cholecystectomy with cholangiogram Post Op Diagnosis: Chronic cholecystitis, symptomatic cholelithiasis - Procedure Note Primary Surgeon: Dr. Shruthi Osei Anesthesia Provider: Randi Montoya CRNA Anesthesia Technique: General ET tube, Local Pathology: Gallbladder and contents Estimated Blood Loss (mL): 5 Indications: The patient has had intermittent right upper quadrant pain for the last 6 months. She is approximately 4 months . She has modified her diet which has improved her symptoms, but she continues to have symptoms when she eats even a little bit of fat. Ultrasound is consistent with gallstones. The patient was seen and evaluated in the clinic where we discussed the risks, benefits, and alternatives of laparoscopic cholecystectomy including but not limited to bleeding, infection, damage to surrounding structures, specifically the common bile duct, and the need for further surgeries or procedures. We also discussed the rationale behind doing a cholangiogram and the possibility of needing an open procedure. The patient voiced understanding, her questions were answered, and she wished to proceed. A consent was signed by the patient in clinic. Findings: 1. Chronic cholecystitis with adhesions between the omentum and gallbladder 2. Cholelithiasis 3. Normal cholangiogram Complications: None - Other Other Information/Narrative: The patient was brought to the operative suite and placed in the supine position. General endotracheal anesthesia was induced. Preoperative antibiotics were given. ERAS protocol was followed. A preop surgical timeout was performed. Local anesthetic was injected into the skin and subcutaneous tissues just inferior to the umbilicus. An 11 blade scalpel was used to make a 5 mm transverse skin incision in this location. Next, a hemostat was used to spread the tissues down to the level of the fascia and a Aicha clamp was used to grasp and elevate the umbilical stalk. A Varess needle was used to gain access to the peritoneal space. Low flow insufflation revealed low pressures and then high flow insufflation was undertaken to 15 mmHg. Next, the Varess needle was removed and a 5 mm laparoscopic port was inserted in this location. Through this port, a 5 mm 30 degree laparoscope was inserted. On inspection of the abdomen no injury was caused on entry. Next, the patient was placed in reverse Trendelenburg and rotated slightly to the left. Two 5 mm ports were inserted in the right upper quadrant, one in the anterior axillary line and the other in the midclavicular line. Also, a 12 mm port was inserted in the subxiphoid region. All ports were placed by first anesthetizing the skin and subcutaneous tissues with local anesthetic, then by making an appropriate length incision with an 11 blade scalpel, and finally by placing the port under direct laparoscopic vision. Once the ports were in place, a ratcheted, toothed grasper was used to elevate the fundus of the gallbladder toward the patient's right shoulder. There were loose adhesions in the right upper quadrant between the omentum and the gallbladder. These were carefully taken down with blunt and sharp dissection with electrocautery, taking care not to cauterize to any tissue I could not easily see through. Next, the peritoneum was incised starting at the hilum of the gallbladder and working toward the fundus along the gallbladder liver interface on the medial and lateral aspects of the gallbladder. Next, attention was returned to the hilum of the gallbladder. The alveolar tissues in this region were taken down with blunt and sharp dissection with electrocautery taking great care not to cauterize though any tissue I could not easily see through. Two ductal structures were isolated and skeletonized such that each ductal structure could be visualized with liver present on either side. The cystic plate was also developed. At this time, it was felt that a critical view of safety had been obtained. Photographs were taken of this view from the medial and lateral perspective. Next, a clip was placed distally, that is toward the gallbladder, on the cystic duct and just proximal to this a ductotomy was performed. A cholangiogram catheter was placed within the duct and it was flushed with saline. There was no leakage and it flushed easily. Clips were also placed proximally and distally on the cystic artery. Full strength Isovue dye was then placed on the cholangiogram catheter and a cholangiogram was performed. The cholangiogram appeared normal. There was good filling of the right and left hepatic system as well as the duodenum and common bile duct. There were no filling defects. Next, the cholangiogram catheter was removed. Two clips were placed proximally on the cystic duct. The cystic duct and cystic artery were divided using laparoscopic scissors between the clips. Then, the gallbladder was dissected off of the liver bed. Once it was completely freed, the gallbladder was placed in an Endo Catch bag and removed through the epigastric port. The gallbladder was noted to contain stones, and was sent to pathology. The epigastric port was replaced and suction and irrigation were used to remove any fluid from the right upper quadrant. This was done until the fluid returned was clear. Next, quarter percent Marcaine with epinephrine in the amount of 5 mL was infused into the right upper quadrant along the liver diaphragm interface to reduce to postoperative pain. Next, a laparoscopic fascial closure device was used to place a single in terrupted 0 Vicryl suture at the epigastric port. This reapproximated the fascia well. The remaining ports were removed under direct laparoscopic vision and the abdomen was deflated. Next, the skin edges were reapproximated with 4-0 Monocryl in an interrupted subcuticular fashion. A sterile dressing of skin glue was placed. The patient tolerated the procedure well. The patient was extubated in the operating room and transferred to the recovery room in stable condition. There were no complications.
[2023-09-22] MEDS ORDERED: KETOROLAC 15 MG/ML VIAL IVP STA (11:08)
[2023-09-22] MEDS ORDERED: HYDROmorphone 1 MG/ML CARPUJECT ONE (11:18)
[2023-09-22] MEDS: HYDROmorphone 0.5 MG/0.5 ML SYRINGE IVP PRN ×2 (11:20→12:05)
[2023-09-22] MEDS: fentaNYL 100 MCG/2 ML VIAL IVP PRN ×3 (11:25→11:35)
[2023-09-22] MEDS ORDERED: KETOROLAC 15 MG/ML VIAL ONE (12:09)
[2023-09-22] MEDS ORDERED: KETOROLAC 30 MG/ML VIAL ONE (12:12)
[2023-09-22] MEDS ORDERED: oxyCODONE 5 MG TABLET ONE (12:49)
--- NOTE | 2023-09-22 14:29 | ANESTHESIA POST OP EVALUATION ---
Anesthesia Post Eval - Post Anesthesia Eval Vitals: Last Vital Signs Temp 36.4 C L 09/22/23 13:30 Pulse 84 09/22/23 14:00 Resp 16 09/22/23 14:00 BP 118/76 09/22/23 14:00 Pulse Ox 94 09/22/23 14:00 O2 Flow Rate CV Function Including HR & BP: Stable Pain Control: Satisfactory Nausea & Vomiting: Negative Mental Status: Baseline Respiratory Status: Airway Patent Hydration Status: Satisfactory Anesthesia Complications: None
--- NOTE | 2023-09-22 15:26 | XRAY Report ---
PROCEDURE: OR Cholangiogram INDICATIONS: Cholangiogram TECHNIQUE: Multiple fluoroscopic images were obtained during intraoperative cholangiogram. COMPARISON: None. Findings and impression: Intraoperative cholangiogram. There is contrast filling of the biliary tree, with transit into the du odenum. Please see operative note for full details. Reviewed by: Leo Wilkins MD on 09/22/2023 3:25 PM PST Approved by: Leo Wilkins MD on 09/22/2023 3:25 PM PST Station ID: [id number]
[2023-09-22 15:36] VITALS: BP 126/85; O2SAT 95
== END 2023-09-22 07:55 | disposition home or self-care (01) ==
LOC: SDS 07:54
PROVIDERS: ATTEND Surgery
PROC: 0FT44ZZ Resection of Gallbladder, Percutaneous Endoscopic Approach (ICD-10-PCS; principal; 2023-09-22 08:30)
DX: K80.10 Calculus of gallbladder with chronic cholecystitis without obstruction (principal); K21.9 Gastro-esophageal reflux disease without esophagitis
CPT/HCPCS: 47563; 74300; 81025; A9270; C1758; J1170; J1200; J7120; Q9966